=== PATIENT | male | born 1945 | race Caucasian/White ===

== ENCOUNTER 2016-12-26 07:08 | Observation (INO) | payer MEDICARE ==
[2016-12-26] VITALS (7 sets, daily range): BP systolic 164–201; BP diastolic 92–101; PULSE 62–73; RESP 14–19; TEMP 95.5–98.2; O2SAT 96–98
[~2016-12-26] VITALS: Ht 182.9 cm; Wt 90.5 kg
[2016-12-26] MEDS ORDERED: BYST10TA2 PO (08:31)
[2016-12-26] MEDS ORDERED: FISH1000 (08:31)
[2016-12-26] MEDS ORDERED: FENO160T PO (08:31)
[2016-12-26] MEDS ORDERED: LANS30CA PO (08:31)
[2016-12-26] MEDS ORDERED: LOSA100T PO (08:31)
[2016-12-26] MEDS ORDERED: VERA300C PO (08:31)
[2016-12-26] MEDS ORDERED: ASPI325T PO (08:32)
[2016-12-26] MEDS ORDERED: PRED10PA PO (08:35)
[2016-12-26] MEDS ORDERED: ATOR40TA16 PO (08:39)
[2016-12-26] MEDS ORDERED: LACTATED RINGER'S 1000 ML INJ 1,000 ML ONE (08:44)
[2016-12-26] MEDS ORDERED: AMPICILLIN-SULBACTAM INJ 3 GM VIAL ONE (08:44)
[2016-12-26] MEDS ORDERED: SODIUM CHLORIDE 0.9% INJ 100 ML ONE (08:45)
[2016-12-26] MEDS ORDERED: OMEG1CAP53 PO (09:14)
[2016-12-26] MEDS ORDERED: FEXO15TA PO (09:14)
[2016-12-26] MEDS ORDERED: COQ-30CA2 (09:14)
[2016-12-26] MEDS ORDERED: VITA250T3 PO (09:14)
[2016-12-26] MEDS ORDERED: FLUT50SP EACH NARE (09:14)
[2016-12-26] MEDS ORDERED: VITA250T5 PO (09:14)
[2016-12-26] MEDS ORDERED: CALC500T55 (09:14)
[2016-12-26] MEDS ORDERED: ALBUAER3 INH (09:14)
[2016-12-26] MEDS ORDERED: LATA0.002 EACH EYE (09:15)
[2016-12-26] MEDS ORDERED: MIDAZOLAM HCL 2 MG/2 ML VIAL ONE (09:18)
[2016-12-26] MEDS ORDERED: DEXAMETHASONE SOD PHOS 4 MG/ML VIAL ONE (09:18)
[2016-12-26] MEDS ORDERED: BACITRACIN TOP OINT 15 GM TUBE ONE (09:46)
[2016-12-26] MEDS ORDERED: OXYMETAZOLINE HCL 0.05% 15 ML NASAL SPRAY ONE (09:46)
[2016-12-26] MEDS ORDERED: LIDOCAINE 1%/EPINEPHrine 1:100,000 SOLN 30 ML VIAL ONE (09:46)
[2016-12-26] MEDS ORDERED: SODIUM CHLORID 0.9% 500 ML IV PRN (10:30)
[2016-12-26] MEDS ORDERED: METOPROLOL TARTRATE 25 MG TAB PO PRN (10:30)
[2016-12-26] MEDS ORDERED: CHLORHEXIDINE GLUCONATE 2 % 1 PACK (2 CLOTHS) TOPICAL PRN (10:30)
[2016-12-26] MEDS ORDERED: POVIDONE IODINE 5% (ANTISEPSIS KIT) 4 APPLICATIONS EACH NARE PRN (10:30)
[2016-12-26] MEDS ORDERED: INSULIN HUMAN REGULAR 1,000 UNITS/10 ML VIAL SQ PRN (10:30)
[2016-12-26] MEDS ORDERED: LACTATED RINGER'S 1000 ML IV PRN (10:30)
[2016-12-26] MEDS ORDERED: MUPIROCIN 2% OINT 1 APPLIC/GM SYR NASAL ONE (12:00)
[2016-12-26] MEDS ORDERED: PROPOFOL 200 MG/20 ML AMP IV ONE (12:00)
[2016-12-26] MEDS ORDERED: LACTATED RINGER'S 1000 ML INJ 1,000 ML IV SCH (14:15)
[2016-12-26] MEDS ORDERED: ONDANSETRON HCL 4 MG/2 ML VIAL IV PUSH PRN (14:15)
[2016-12-26] MEDS: ACETAMINOPHEN/HYDROcodone 325 MG/5 MG TAB PO PRN ×3 (14:55→22:09)
[2016-12-26] MEDS: AMPICILLIN/SULBAC 3 GM/NS 100 ML IV SCH ×4 (14:58→22:02)
[2016-12-26] MEDS ORDERED: ALBUTEROL SULFATE 90 MCG/ACT HFA 18 GM INHALER INH PRN (15:45)
[2016-12-26] MEDS: LOVAZA PO SCH ×2 (18:00→21:00)
[2016-12-26] MEDS ORDERED: ENALAPRILAT 2.5 MG/2 ML VIAL IV PUSH PRN (20:00)
[2016-12-26] MEDS ORDERED: NEBIVOLOL 10 MG TAB PO SCH (20:00)
[2016-12-26] MEDS ORDERED: LOSARTAN 50 MG TAB PO SCH (20:00)
[2016-12-26 20:26] LABS: AUTOMATED NEUTROPHIL # 9.6 TH/MM3 (1.8-7.7); BASOPHIL # 0.1 TH/MM3 (0-0.2); BASOPHIL % 0.5 % (0.0-2.0); EOSINOPHIL % 0.2 % (0.0-4.0); HEMATOCRIT 33.4 % (39.0-51.0); LYMPH % 3.3 % (9.0-44.0); LYMPHOCYTE # 0.3 TH/MM3 (1.0-4.8); MEAN CELL VOLUME 90.5 FL (80.0-100.0); MEAN CORPUSCULAR HEMOGLOBIN 30.4 PG (27.0-34.0); MEAN CORPUSCULAR HGB CONC 33.6 % (32.0-36.0); MONO % 1.3 % (0.0-8.0); NEUT % 94.7 % (16.0-70.0); PLATELET COUNT 243 TH/MM3 (150-450); RED BLOOD COUNT 3.69 MIL/MM3 (4.50-5.90); RED CELL DISTRIBUTION WIDTH 13.4 % (11.6-17.2); WHITE BLOOD COUNT 10.1 TH/MM3 (4.0-11.0)
[2016-12-26 20:29] LABS: HEMO FLAGS DIFF FINAL
[2016-12-26 20:34] LABS: CHLORIDE 102 MEQ/L (98-107); POTASSIUM 4.8 MEQ/L (3.5-5.1); SODIUM (NA) 136 MEQ/L (136-145)
[2016-12-26 20:38] LABS: ANION GAP 11 MEQ/L (5-15); BICARBONATE 22.7 MEQ/L (21.0-32.0); BLOOD UREA NITROGEN 43 MG/DL (7-18)
--- NOTE | 2016-12-26 20:38 | PD.CONS ---
HPI Service [facility] Hospitalists Consult Requested By Dr Nunez Reason for Consult HTN Primary Care Physician Bill Fisher M.D. Diagnoses: History of Present Illness 71 yo Male with pmh as below presents to [facility] for an elective surgery. Patient underwent a septoplasty today. He states he feels sore from the nose and has some post nasl drip whic is bothering him. Denies cp, sob, dizziness, headache. Patient is noted to have a very elevated BP with the SBP in the 200's systolic and I am being consulted to manage the patient medically. Review of Systems As per history of present illness, other systems reviewed by me and negative Past Family Social History Allergies: Coded Allergies: Levaquin (Verified Adverse Reaction, Severe, ACHING, 12/26/16) Past Medical History Hypertension Prostate cancer status post radiation therapy Hyperlipidemia Glaucoma Cataracts Past Surgical History Appendectomy Reported Medications Latanoprost Opth Drops (Latanoprost) 0.005% Drops 1 Drop EACH EYE HS Refrigerate until opened. Calcium Magnesium Caplet (Calcium Carb,Gluc/Mag Ox,Gluc) 1 Each Tablet Coq-10 (Coenzyme Q10 (Ubidecarenone)) 30 Mg Cap Proair Hfa 8.5 GM Inh (Albuterol Sulfate) 90 Mcg/Act Aer 1 Puff INH Q4H PRN 108 mcg/actuation Vitamin C (Ascorbic Acid) 250 Mg Tab 250 Mg PO Vitamin B-12 (Cyanocobalamin) 250 Mcg Tab 250 Mcg PO DAILY Rosa Allergy (Fexofenadine HCl) 180 Mg Tab 180 Mg PO DAILY Fluticasone Nasal [place] 50 Mcg/Act Naspr 50 Mcg EACH NARE BID 50 mcg/spray Lovaza (Ojmld-1-Ixzh Ethyl Esters) 1 Gm Cap 2 Gm PO QID Atorvastatin (Atorvastatin Calcium) 40 Mg Tab 40 Mg PO HS Prednisone (21) 10 mg tab Dose Pack (Prednisone) 10 Mg Pack 10 Mg PO DIRECTED Aspirin 325 Mg Tab 325 Mg PO DAILY Verapamil ER 24 HR (Verapamil HCl) 300 Mg Cap 300 Mg PO HS Lansoprazole 30 Mg Capdr 30 Mg PO DAILY Fenofibrate 160 Mg Tab 200 Mg PO DAILY Losartan (Losartan Potassium) 100 Mg Tab 100 Mg PO DAILY Bystolic (Nebivolol) 10 Mg Tab 10 Mg PO DAILY Family History Patient's mother had diabetes Social History The patient denies smoking. Patient with alcohol daily, however denies periods episode of a withdrawal. Denies illicit drug use. The patient is . Physical Exam Vital Signs Vital Signs Date Time Temp Pulse Resp B/P Pulse Ox O2 Delivery O2 Flow Rate FiO2 12/26/16 19:15 98 Face Tent 6.00 40 12/26/16 19:15 98 Face Tent 6.00 40 12/26/16 16:25 95.5 62 19 201/97 96 12/26/16 14:20 97 21 12/26/16 14:20 97 21 12/26/16 13:00 98.7 68 14 192/94 95 Room Air 12/26/16 13:00 68 12/26/16 12:45 62 14 204/102 100 Humidified 5 Face Tent 12/26/16 12:30 69 14 194/96 94 Room Air 12/26/16 12:15 68 14 199/93 100 Humidified 5 Face Tent 12/26/16 12:00 65 14 210/97 100 Humidified 5 Face Tent 12/26/16 11:45 98.7 73 14 186/84 100 Humidified 5 Face Tent 12/26/16 11:44 73 12/26/16 08:10 98.2 66 14 164/101 98 Physical Exam GENERAL: This is a well-nourished, well-developed patient, in no apparent distress. SKIN: No rashes, ecchymoses or lesions. Cool and dry. HEAD: Atraumatic. Normocephalic. No temporal or scalp tenderness. EYES: Pupils equal round and reactive. Extraocular motions intact. No scleral icterus. No injection or drainage. ENT: Nose without bleeding, purulent drainage or septal hematoma. Throat without erythema, tonsillar hypertrophy or exudate. Uvula midline. Airway patent. NECK: Trachea midline. No JVD or lymphadenopathy. Supple, nontender, no meningeal signs. CARDIOVASCULAR: Regular rate and rhythm without murmurs, gallops, or rubs. RESPIRATORY: Clear to auscultation. Breath sounds equal bilaterally. No wheezes , rales, or rhonchi. GASTROINTESTINAL: Abdomen soft, non-tender, nondistended. No hepato-splenomegaly , or palpable masses. No guarding. MUSCULOSKELETAL: Extremities without clubbing, cyanosis, or edema. No joint tenderness, effusion, or edema noted. No calf tenderness. Negative Homans sign bilaterally. NEUROLOGICAL: Awake and alert. Cranial nerves II through XII intact. Motor and sensory grossly within normal limits. Five out of 5 muscle strength in all muscle groups. Normal speech. Laboratory Laboratory Tests Test 12/26/16 20:20 White Blood Count 10.1 Red Blood Count 3.69 Hemoglobin 11.2 Hematocrit 33.4 Mean Corpuscular Volume 90.5 Mean Corpuscular Hemoglobin 30.4 Mean Corpuscular Hemoglobin 33.6 Concent Red Cell Distribution Width 13.4 Platelet Count 243 Mean Platelet Volume 6.4 Neutrophils (%) (Auto) 94.7 Lymphocytes (%) (Auto) 3.3 Monocytes (%) (Auto) 1.3 Eosinophils (%) (Auto) 0.2 Basophils (%) (Auto) 0.5 Neutrophils # (Auto) 9.6 Lymphocytes # (Auto) 0.3 Monocytes # (Auto) 0.1 Eosinophils # (Auto) 0.0 Basophils # (Auto) 0.1 CBC Comment DIFF FINAL Differential Comment Sodium Level 136 Potassium Level 4.8 Chloride Level 102 Result Diagram: 12/26/16201912/26/162019 Assessment and Plan Problem List: (1) Uncontrolled hypertension ICD Code: I10 Status: Chronic Plan: Will resume home antihypertensive medications and place on Vasotec IV as needed. Patient currently on losartan and Bystolic. Monitor vital signs (2) Hyperlipidemia ICD Code: E78.5 Status: Chronic Plan: Continue statin (3) Glaucoma ICD Code: H40.9 Status: Acute Plan: Seems to be stable. Continue latanoprost. Brett Green MD Dec 26, 2016 20:38
[2016-12-26 20:41] LABS: ALT (GPT) 74 U/L (12-78); AST (GOT) 52 U/L (15-37); GLOMERULAR FILTRATION RATE 46 ML/MIN (>89)
[2016-12-26 20:43] LABS: TOTAL BILIRUBIN ADULT 0.4 MG/DL (0.2-1.0)
[2016-12-26 20:44] LABS: ALKALINE PHOSPHATASE 34 U/L (45-117)
[2016-12-26] MEDS ORDERED: VERAPAMIL 300 MG PO SCH ×2 (21:00)
[2016-12-26] MEDS ORDERED: ATORVASTATIN 40 MG TAB PO SCH (21:00)
[2016-12-26] MEDS ORDERED: LATANOPROST 0.005% OPHT SOLN 2.5 ML BTL EACH EYE SCH (21:00)
[2016-12-26] MEDS ORDERED: VERAPAMIL HCL 120 MG SUSTAINED RELEASE TAB PO ONE (21:30)
[2016-12-27] VITALS: BP 188/98; PULSE 65; RESP 18; TEMP 96.5; O2SAT 96
[2016-12-27 02:03] VITALS: BP 177/100; PULSE 65
[2016-12-27] MEDS: AMPICILLIN/SULBAC 3 GM/NS 100 ML IV SCH ×2 (03:58)
[2016-12-27 04:00] VITALS: BP 171/89; PULSE 64; RESP 18; TEMP 95.9; O2SAT 97
[2016-12-27] MEDS: ACETAMINOPHEN/HYDROcodone 325 MG/5 MG TAB PO PRN (04:02)
[2016-12-27] MEDS ORDERED: CEFP250S PO (07:31)
[2016-12-27] MEDS ORDERED: HYDR1SOL3 PO (07:31)
[2016-12-27 08:00] VITALS: BP 184/91; PULSE 69; RESP 18; TEMP 96.9; O2SAT 100; O2SAT 97
[2016-12-27] MEDS ORDERED: FENOFIBRATE 145 MG TAB PO SCH (09:00)
[2016-12-27] MEDS ORDERED: LOSARTAN 50 MG TAB PO SCH ×2 (09:00)
[2016-12-27] MEDS ORDERED: PANTOPRAZOLE SOD 40 MG DELAYED RELEASE TAB PO SCH (09:00)
[2016-12-27] MEDS ORDERED: NEBIVOLOL 10 MG TAB PO SCH ×2 (09:00)
[2016-12-27] MEDS ORDERED: CYANOCOBALAMIN 100 MCG TAB PO SCH (09:00)
--- NOTE | 2016-12-27 23:59 | EKG ---
Date Performed: 12/26/2016 Time Performed: 08:58:52 PTAGE: 71 years EKG: Sinus rhythm WITH SINUS ARRHYTHMIA WITH FIRST DEGREE AV BLOCK ABNORMAL ECG NO PREVIOUS TRACING DOCTOR: Hair Ge Interpretating Date/Time 12/27/2016 23:58:19
--- NOTE | 2016-12-28 19:45 | MP ---
cc: CLARE NUNEZ M.D. DATE OF SURGERY December 26, [address] Claer Nunez PREOPERATIVE DIAGNOSIS 1. Bilateral anterior nasal stenosis. 2. Nasal septal deviation. 3. Nasal airway obstruction. 4. Hypertrophy of inferior turbinates. 5. Bilateral epistaxis. POSTOPERATIVE DIAGNOSIS 1. Bilateral anterior nasal stenosis. 2. Nasal septal deviation. 3. Nasal airway obstruction. 4. Hypertrophy of inferior turbinates. 5. Bilateral epistaxis. OPERATION PERFORMED 1. Open repair of nasal septal fracture. 2. Bilateral submucosal resection of inferior turbinates. INDICATIONS Documented in the history and physical. DESCRIPTION OF OPERATION The patient was taken to OR #2 and placed in the supine position following induction of general anesthesia and intubation, the nose was packed bilaterally with cotton pledgets saturated in 0.05% Oxymetazoline, was injected with a total of 15 ml of 1% Xylocaine with epinephrine into the columella, the nasal vestibule, the nasal tip dorsum, septal mucosa and inferior turbinates. He was then prepped and draped for surgery. Nasal packing was removed and a W-plasty incision was made on the inferior surface of the columella. This was then sharply dissected down to the inferior borders of the medial crura of lower lateral cartilages. These inferior borders then followed anteriorly and superiorly extending the incisions within the nasal vestibule and elevating the skin from the nasal tip and from the dorsum as far as the junction of the bony cartilaginous septum. Sharp dissection then continued between the medial crura of lower lateral cartilages moving off to the left side where the anterior end of the quadrangular cartilage was displaced, obstructing the left nasal vestibule. This was along a sharply angulated line of fracture which had been displaced into the right nasal vestibule. Soft tissue was then elevated from this anterior end of the quadrangular cartilage using sharp and blunt dissection using Derik elevator where the angulated fracture line was encountered. This was then excised and the anterior end of the cartilage was then removed and placed in saline on the back table. Further elevation of mucosa from the septum showed further evidence of cartilaginous fracture, a cumulative area of 1 x 2 cm was removed preserving 1.5 cm dorsal cartilaginous struts. The mucosa was then elevated from the bony septum and the maxillary crest and these were removed using Shawn [place]air[place] forceps and a 6-mm [place] chisel. The anterior nasal spine was preserved. At this point the inferior turbinates were addressed. They were fractured out medially and stab incisions made along their inferior surfaces. Through these incisions the submucosal soft tissue was reduced using a curette and preserving the conchal bone. The incisions were then cauterized using the suction Bovie at 35 gutierrez. The remnants of the inferior turbinates were then relateralized to the lateral nasal wall. Reconstruction of the nasal tip was then begun beginning with replacement of the anterior end of the quadrangular cartilage into the space between the mucosa and skin of the nasal vestibule. It was sewn in place using clear 5-0 nylon, a single interrupted suture superiorly attaching it to the dorsal cartilaginous strut and inferiorly to the soft tissue investing the anterior nasal spine. The skin was then reattached to this cartilage using horizontal mattress sutures of 4-0 Vicryl. The columella was reconstructed incorporating a 3 x 12 mm segment of the quadrangular cartilage between the medial crura and this was held in place using the same 5-0 clear nylon technique with interrupted sutures. Horizontal mattress suture was placed into the domes of the lower lateral cartilages to elevate and reapproximate the nasal tip. The skin was then redraped over the nose and the incisions were closed using 5-0 fast-absorbing plain gut interrupted technique. The nose was then irrigated and suctioned and was packed with 5.5 cm rapid rhino packs, each one inflated with 5 mL of air and the procedure was then terminated. The patient was reversed from anesthesia and taken to recovery in good condition. There were no complications. Blood loss was 60 ml. MD GABY Burgos/ELISABETH /7:40 AM /7:35 PM
== END 2016-12-27 08:12 | disposition home or self-care (01) ==
LOC: PHSDC 07:08 → HSDI 09:59 → PH3A 13:31
PROVIDERS: ADMIT Otolaryngology; ATTEND Otolaryngology
DX: H04.553 Acquired stenosis of bilateral nasolacrimal duct (principal); J34.2 Deviated nasal septum; J98.8 Other specified respiratory disorders; J34.3 Hypertrophy of nasal turbinates; R04.0 Epistaxis; I44.0 Atrioventricular block, first degree; I49.8 Other specified cardiac arrhythmias; R94.31 Abnormal electrocardiogram [ECG] [EKG]; I10 Essential (primary) hypertension; Z92.3 Personal history of irradiation; E78.5 Hyperlipidemia, unspecified; H40.9 Unspecified glaucoma; H26.9 Unspecified cataract; Z79.899 Other long term (current) drug therapy; Z79.82 Long term (current) use of aspirin; Z85.46 Personal history of malignant neoplasm of prostate
CPT/HCPCS: 00160; 21336; 30140; 80053; 85025; 93005; 94762; G0378; J0295; J1100; J2250; J3010; J7120

== ENCOUNTER 2018-01-24 05:53 | Observation (INO) ==
--- NOTE | 2018-01-23 22:44 | MH ---
cc: Edi Cespedes Christopher S MD Hardell,Madhu Bishop,Morris Kuhn,Preet Barraza, DATE OF ADMISSION: 01/24/2018 ADMITTING DIAGNOSIS: Lumbar spinal stenosis. HISTORY OF PRESENT ILLNESS: This is a 72-year-old male who presented to us for evaluation of low back pain radiating into the right posterior leg. He states that he has had chronic low back pain with occasional flare-ups. He states usually the pain would resolve with rest. In 07/2017, he started to exercise more, and the pain progressively has gotten worse since then. He saw pain management who did 3 epidural steroid injections. The first helped for about 5 days and the other 2 did not help. He was subsequently referred to physical therapy and had traction which helped for only that day. He states the exercises on his back did not help him. He states the pain has gotten better with his reduction in his activity. He states if he increases his activity, he continues to have exacerbations of pain. He states that the pain was in the low back, radiating to the right buttocks, down the posterior thigh, and into the calf, and also the anterior hunter to the top of the foot. He states since the physical therapy, he has had pain stopping at the knee, and he was not having any right lower extremity symptoms. He denies any left lower extremity symptoms. He was also getting paresthesias in the same distribution as the pain. He denies any falls. However, he feels like he is off balance with walking. He denies any bowel or bladder incontinence. He states his back pain is equal to his leg pain, and he states that if he extends his lower back, that was a more comfortable position for him. PAST MEDICAL HISTORY: Significant for hyperlipidemia, hypertension, seasonal allergies, glaucoma, diabetes, prostate cancer in 2014, previous history of gout. CURRENT MEDICATIONS: Medications listed: 1. Alprazolam. 2. Aspirin. This was placed on hold 1 week prior to surgical intervention. 3. Atorvastatin 40 mg. 4. Azelastine 0.15% nasal spray. 5. Bystolic 10 mg. 6. Fenofibrate 200 mg. 7. Fluticasone 50 mcg nasal spray. 8. Ipratropium bromide 42 mcg nasal spray. 9. Lansoprazole 30 mg. 10. Latanoprost 0.005% eyedrops. 11. Losartan 100 mg. 12. Lovaza 2 capsules daily. 13. ProAir inhaler. 14. Prostate 2.4. 15. Vitamin B12. ALLERGIES: HE IS ALLERGIC TO LEVAQUIN. FAMILY HISTORY: His father passed at age 60, had a stroke. Brother had congestive heart failure. SOCIAL HISTORY: He is a former smoker, quit in 1970. PAST SURGICAL HISTORY: Prior abdominal surgery for small intestine resection, appendectomy, nasal surgery, radiation for his prostate in 2013, appendectomy in 1956. REVIEW OF SYSTEMS: CONSTITUTIONAL: He denies any fever or chills. EARS, NOSE AND THROAT: No pharyngitis, exudates, or bloody drainage from his nose. CARDIOVASCULAR: He denies any chest pain or palpitations. RESPIRATORY: No cough or shortness of breath. GASTROINTESTINAL: No nausea, vomiting, or abdominal pain. MUSCULOSKELETAL: Positive for low back pain. SKIN: No rashes or pruritus. NEUROLOGIC: No difficulty with speech or memory. ENDOCRINE: No polyuria or polydipsia. HEMATOLOGIC: No bruising or bleeding tendencies. PHYSICAL EXAMINATION: HEENT: Head is normocephalic, atraumatic. NECK: Supple. No carotid bruits heard. LUNGS: Clear to auscultation bilaterally. HEART: Regular rate and rhythm. Normal S1, S2. A 3/5 systolic ejection murmur, left sternal border. ABDOMEN: Soft, nontender. Positive bowel sounds. SKIN: No cyanosis or erythema. MUSCULOSKELETAL: He has weakness in the right leg at 4/5, right iliopsoas and EHL strength. He has difficulty extending his right knee completely secondary to tightness in his hamstrings and pain in his low back. He has 5/5 strength in the lower extremities, otherwise. He ambulates without any assistive device. NEUROLOGIC: He is awake, alert, and oriented. Cranial nerves 2-12 are grossly intact. Speech is fluent. Comprehension is good. Sensation is intact in the lower extremities. Reflexes are diminished in lower extremities. LABORATORY DATA: MRI of the lumbar spine revealed severe multilevel disk degeneration with disk height loss throughout the lumbosacral spine along with severe spinal stenosis from facet and ligamentum flavum hypertrophy with disk protrusions at the L2-L3, L3-L4, L4-L5, and L5-S1 levels, with lesser degree of stenosis at L1-L2. IMPRESSION: This is a 72-year-old male with chronic history of low back pain for the last 6 months. Also, pain in the right leg which worsens with standing or walking even short distances. His back pain bothers him equally as much as his right leg pain. Turning in bed aggravates his symptoms. He is very limited in his activity status and up to 6 months ago was walking several miles and golfing regularly, which he has been unable to do. He has undergone physical therapy, as well as interventional pain management without any lasting relief. MRI of the lumbar spine revealed multilevel disc degeneration with disk height loss throughout the lumbosacral spine along with severe spinal stenosis and facet and ligamentum flavum hypertrophy with disk protrusions at L2-L3, L3-L4, L4-L5, and L5-S1 levels with lesser degree of stenosis at the L1-L2 level. PLAN: The patient has failed conservative measures, and he is very debilitated with his pain and activity restriction, and we have therefore discussed with him the option of an L2 to S1 decompressive laminectomy. He understands the procedure will mainly help with his stenosis-related symptoms of radiculopathy and claudication, but given that he has extensive multilevel degenerative disk disease with facet arthropathy, he may have ongoing back pain. The procedure as well as the risks, benefits, alternatives, and recovery time were explained in great detail with the patient. We discussed the risks involved with surgery to include but not limited to bleeding, infection, muscle weakness, voice hoarseness, difficulty swallowing, heart attack, stroke, blood clots, scar tissue formation, among others. No guarantees were given to the patient as to the results of the surgery. We have explained the procedure using spine models in the office, and all of his questions were answered to his satisfaction. We have also explained the procedure with his son who was present for his appointment. Again, the patient is stating that he is miserable with his level of discomfort and activity restrictions, and he is requesting that we proceed, and he is, therefore, scheduled accordingly. AMADA Hernandez MD ESP/bernard/tam , 05:41 PM , 05:57 PM
[2018-01-24] MEDS ORDERED: Vancomycin Inj 1 GM/200 ML PIGGYBACK IV.SIG SCH (06:40)
[2018-01-24] MEDS ORDERED: Chlorhexidine Gluconate 2% 1 Pack (2 Cloths) TOPICAL SCH (06:45)
[2018-01-24] MEDS ORDERED: Metoprolol Tartrate 25 MG Tablet PO SCH (06:45)
[2018-01-24] MEDS ORDERED: Gelatin Size 100 Topical Foam ONE (06:51)
[2018-01-24] MEDS ORDERED: Bupivacaine/Epinephrine 0.5% Inj 50 ML Vial ONE (06:51)
[2018-01-24] MEDS ORDERED: Thrombin Topical Soln 5,000 UNIT Vial TOPICAL ONE ×2 (06:51→09:08)
[2018-01-24] MEDS ORDERED: Sodium Chlor 0.9% Inj 500 ML IV.SIG SCH (07:00)
[2018-01-24 11:22] LABS: ABG Base Excess -3.4 mmol/L (-2-2); ABG PCO2 42 mmHg (38-42); ABG PO2 244 mmHG (61-120)
[2018-01-24 11:29] LABS: Hematocrit 30.1 % (39.0-51.0); Hemoglobin 10.2 gm/dL (13.0-17.0)
[2018-01-24] MEDS ORDERED: Sodium Chlor 0.9% Inj 500 ML IV.SIG ONE (12:00)
[2018-01-24] MEDS ORDERED: Neostigmine Inj 5 MG/5 ML Syringe IV.PUSH ONE (12:00)
[2018-01-24] MEDS ORDERED: Lidocaine PF 1% Inj 5 ML Syringe INFILTRATN ONE (12:00)
[2018-01-24] MEDS ORDERED: Phenylephrine/NS 1000 MCG/10ML Syringe IV.PUSH ONE (12:00)
[2018-01-24] MEDS ORDERED: Glycopyrrolate Inj 1 MG/5 ML Syringe IV.PUSH ONE (12:00)
[2018-01-24] MEDS ORDERED: Bisacodyl 10 MG Supp RECTAL PRN (12:26)
[2018-01-24] MEDS ORDERED: Zolpidem Tartrate 5 MG Tablet PO PRN (12:26)
[2018-01-24] MEDS ORDERED: Menthol 5.8 MG Lozenge BUCCAL PRN (12:26)
[2018-01-24] MEDS ORDERED: Morphine Inj 4 MG/ML Vial IV.PUSH PRN (12:26)
[2018-01-24] MEDS ORDERED: Aluminum/Magnesium/Simethacone Susp 30 ML UDC PO PRN (12:26)
--- NOTE | 2018-01-24 12:36 | P.OP ---
- Preoperative Diagnosis (1) Spinal stenosis, lumbar region with neurogenic claudication (2) Degeneration, intervertebral disc, lumbar - Postoperative Diagnosis (1) Degeneration, intervertebral disc, lumbar (2) Spinal stenosis, lumbar region with neurogenic claudication Date of procedure: 01/24/18 Procedure: Lumbar L1, L2, L3, L4, L5 and S1 decompressive laminectomy with medial facetectomy; microsurgical technique Anesthesia: GETA Surgeon: Preet Kuhn MD Electrical Technician: Tia Jaramillo Estimated blood loss (mL): 200 Operation and Findings: Following administration of general endotracheal anesthesia, patient received vancomycin 1 g intravenously. Sequential compression devices were placed for DVT prophylaxis as well as a Barraza catheter. He was then turned in prone position on Damion frame and the Dashawn table and all pressure points adequately padded. The lumbar region was then shaved and prepped with a Betadine and ChloraPrep. Sterile draping undertaken with Ioban. Midline incision overlying the L2-S1 levels was then made after infiltrating the skin with 0.5% Marcaine with epinephrine solution. The skin incision was made extending down through the fascia and then using the subperiosteal plane on the left side the muscular attachments to the spinous process and lamina were detached. Intraoperative fluoroscopy was used for level confirmation and further dissection undertaken using microtechnique with microscope magnification. The inferior portion of the left L2, L3, L4, L5 and superior portion of the S1 lamina was then drilled out and the underlying ligamentum flavum also removed. There was significant facet arthropathy noted as well as severe spinal stenosis at L2-3, L3-4, L4-5, and L5-S1 levels and the medial portion of left L2-S1 facets was also resected and the lateral recess decompressed. Epidural venous stasis which he with the bipolar cautery along with Gelfoam and thrombin and bone wax used at the laminotomy edges for hemostasis. The thecal sac was then gently retracted and the hypertrophied ligamentum flavum and medial portion of facet of the right side L2-S1 were also resected for circumferential spinal canal decompression from L2-S1 levels bilaterally. The area was then copiously irrigated with vancomycin solution. Depo-Medrol 40 mg was also injected in the epidural space. A 7 mm TIGIST drain was then placed under the muscular layer which is exited through separate site and secured with a 2-0 nylon tie. The retractors removed and the muscle fascia proximal using 2-0 Vicryl interrupted stitches. 3-0 Vicryl subcuticular stitches were also placed in an interrupted fashion and planned skin closure was with ronna. A sterile dressing was then applied and the patient then turned in the supine position and extubated and taken to recovery room in stable condition. There were no intraoperative complications and all sponge and needle count was correct at the end of the procedure. Estimated blood loss about 200 cc.
--- NOTE | 2018-01-24 12:40 | XR ---
EXAM DATE: 01/24/2018 12:34 PM EDT AGE/SEX: 72 years / Male INDICATIONS: L2-L3, L3-L4, L4-L5, L5-S1 laminectomies. Level localization. CLINICAL DATA: This is the patient's initial encounter. Patient reports that signs and symptoms have been present for 1 day and indicates a pain score of Nonresponsive. MEDICAL/SURGICAL HISTORY: Non-responsive. Non-responsive. COMPARISON: No prior exams available for comparison. FINDINGS: 2 lateral views are submitted from the operating room. Soft tissue retractors and millimeters are see n posteriorly. On the second image, the upper pointer is at the level of the L3 vertebral body and th e lower pointer is at the L4/L5 intervertebral disc space level. CONCLUSION: Second lateral view shows pointers at L3 and L4/L5 levels. Electronically signed by: Cesar Rollins MD 01/24/2018 12:39 PM EDT
[2018-01-24] MEDS ORDERED: fentaNYL Citrate Inj 100 MCG/2 ML Ampul ONE (12:45)
[2018-01-24] MEDS: Senna/Docusate Sodium 8.6/50 MG Tablet PO SCH (20:38)
[2018-01-24] MEDS ORDERED: AZELASTINE NASAL SCH (21:00)
[2018-01-24] MEDS ORDERED: [UNRECOGNIZED DRUG - OTHER] PO SCH (21:00)
[2018-01-24] MEDS ORDERED: VERAPAMIL 300 MG PO SCH (21:00)
[2018-01-24] MEDS ORDERED: [UNRECOGNIZED DRUG - MIXTURE] PO SCH (21:00)
[2018-01-24 22:59] VITALS: RESP 18
[2018-01-25 05:37] VITALS: BP 179/79; PULSE 82; TEMP 98.3; O2SAT 96
[2018-01-25] MEDS: Senna/Docusate Sodium 8.6/50 MG Tablet PO SCH (08:56)
[2018-01-25] MEDS ORDERED: Fenofibrate 145 MG Tablet PO SCH (09:00)
[2018-01-25] MEDS ORDERED: COENZYME Q10 30 MG PO SCH (09:00)
[2018-01-25] MEDS ORDERED: Ascorbic Acid 500 MG Tablet PO SCH (09:00)
--- NOTE | 2018-01-25 10:12 | P.DCO ---
- Physical Therapy Order: Evaluate and treat, Improve ambulation, Strength and gait training - Home Health Nursing Order: Signs/symptoms of disease process, Wound care and dressing changes, Nursing assessment with vital signs Instructions: Remove skin ronna on 02/05/18 - Certification I have seen patient Satnam Atkinson on 01/25/18. My clinical findings support the need for the requested home health care services because: Limited mobility due to disease progression, Deconditioned with increased weakness, High risk of falls I certify that my clinical findings support that this patient is homebound because: Post-op weakness, Unsteady gait/balance, Unable to use public transportation
--- NOTE | 2018-01-25 10:18 | P.PNNS ---
Subjective Interval history: Pt awake and alert. Complains of some discomfort radiating into right posterior thigh to the knee. Incisional back pain controlled. Numbness in toes. <Edi Cespedes - Last Filed: 01/25/18 10:12> Physical Exam Vital signs: Vital Signs 01/24/18 12:35 01/24/18 12:45 01/24/18 13:00 Temperature 97.9 F Pulse Rate 90 83 79 Respiratory Rate 18 18 18 Blood Pressure 148/70 H 152/63 H 133/63 Pulse Oximetry 96 96 01/24/18 13:15 01/24/18 14:00 01/24/18 20:00 Temperature 98.3 F 98.2 F 98 F Pulse Rate 76 77 76 Respiratory Rate 18 16 18 Blood Pressure 131/62 131/59 L 175/85 H Pulse Oximetry 96 98 95 01/25/18 00:00 01/25/18 04:00 Temperature 97.9 F 98.3 F Pulse Rate 81 82 Respiratory Rate 18 18 Blood Pressure 187/86 H 179/79 H Pulse Oximetry 95 96 Intake & Output 01/24/18 01/25/18 01/25/18 18:59 06:59 18:59 Intake Total 1700 / 1700 1000 / 1000 Output Total 200 / 200 1900 / 1900 Balance 1500 / 1500 -900 / -900 Weight 91 kg Intake: IV 100 / 100 Ancef Inj 1,000 MG In NS Inj 100 / 100 100 ML @ 200 mls/hr IV.SIG Q8H [facility] Rx#:[id number] Oral 900 / 900 Anesthesia Amount 1700 / 1700 Output: Urine 1900 / 1900 Estimated Blood Loss 150 / 150 Wound Drainage 50 / 50 Back 50 / 50 Other: Date of Last Bowel Movement 01/24/18 01/24/18 - Constitutional no acute distress, average body habitus, cooperative - Routine HEENT Exam Head: Present: normocephalic, atraumatic Eye: Present: PERRL. Absent: conjunctival icterus - Routine Respiratory Exam Present: CTA bilaterally. Absent: respiratory distress, rhonchi, wheezes - Routine Cardiovascular Exam Present: RRR, S1, S2. Absent: murmur - Routine Abdominal Exam Present: soft, normoactive bowel sounds. Absent: tenderness - Routine Skin Exam Present: intact. Absent: cyanosis, erythema - Routine Neurological Exam Present: alert, sensory deficit (numbness in toes bilaterally.), moving all extremities, normal speech. Absent: motor deficit, altered mental status - Routine Psychiatric Exam Present: normal affect, cooperative, good insight, good judgment. Absent: anxious, agitated <Edi Cespedes - Last Filed: 01/25/18 10:12> Vital signs: Vital Signs 01/24/18 12:35 01/24/18 12:45 01/24/18 13:00 Temperature 97.9 F Pulse Rate 90 83 79 Respiratory Rate 18 18 18 Blood Pressure 148/70 H 152/63 H 133/63 Pulse Oximetry 96 96 01/24/18 13:15 01/24/18 14:00 01/24/18 20:00 Temperature 98.3 F 98.2 F 98 F Pulse Rate 76 77 76 Respiratory Rate 18 16 18 Blood Pressure 131/62 131/59 L 175/85 H Pulse Oximetry 96 98 95 01/25/18 00:00 01/25/18 04:00 Temperature 97.9 F 98.3 F Pulse Rate 81 82 Respiratory Rate 18 18 Blood Pressure 187/86 H 179/79 H Pulse Oximetry 95 96 Intake & Output 01/24/18 01/25/18 01/25/18 18:59 06:59 18:59 Intake Total 1700 / 1700 1000 / 1000 Output Total 200 / 200 1900 / 1900 Balance 1500 / 1500 -900 / -900 Weight 91 kg Intake: IV 100 / 100 Ancef Inj 1,000 MG In NS Inj 100 / 100 100 ML @ 200 mls/hr IV.SIG Q8H [facility] Rx#:[id number] Oral 900 / 900 Anesthesia Amount 1700 / 1700 Output: Urine 1900 / 1900 Estimated Blood Loss 150 / 150 Wound Drainage 50 / 50 Back 50 / 50 Other: Date of Last Bowel Movement 01/24/18 01/24/18 <Preet Kuhn - Last Filed: 01/25/18 12:04> Assessment and Plan - Assessment (1) Spinal stenosis, lumbar region with neurogenic claudication Code(s): M48.062 - Spinal stenosis, lumbar region with neurogenic claudication Status: Acute (2) Degeneration, intervertebral disc, lumbar Code(s): M51.36 - Other intervertebral disc degeneration, lumbar region Status : Acute - Plan TIGIST drain removed and steri strip placed at exit site. Will assess pts ambulatory status this morning and if doing well discharge home with home health and home PT Orders written for home health care to remove ronna on 02/05/18. Pt very pleased with progress so far. <Edi Cespedes - Last Filed: 01/25/18 10:12> - Attending Attestation The exam, history, and the medical decision-making described in the above note were completed with the assistance of the mid-level provider. I reviewed and agree with the findings presented. I attest that I had a [id number] encounter with the patient on the same day, and personally performed and documented my assessment and findings in the medical record. <Preet Kuhn - Last Filed: 01/25/18 12:04>
== END 2018-01-25 16:09 | disposition home health service (06) ==
LOC: N06 05:53 → HSDC 05:53
PROVIDERS: ADMIT Neurological Surgery; ATTEND Neurological Surgery